=== PATIENT | male | born 1985 | race Hispanic/Latino ===

== ENCOUNTER 2018-09-24 19:51 | Emergency (ER) | payer SELFPAY ==
--- NOTE | 2018-09-24 21:16 | EDPHYS ---
Physician Documentation [facility] Name: Cecilio Montilla Age: 33 yrs Sex: Male : 1985 Arrival Date: 09/24/2018 Time: 19:53 Bed 28 Private MD: ED Physician Yao Roberts HPI: 09/24 21:16 This 33 yrs old Male presents to ER via Ambulatory with complaints of Stung by tw4 Yellow Jacket. 21:16 The patient was bitten on the dorsum of right hand, by a wasp. Onset: The tw4 symptoms/episode began/occurred today. Animal information: Patient/Caregiver unable to provide information related to the animal. Secondary to the bite the patient reports pain. Associated signs and symptoms: The patient has no apparent associated signs or symptoms. The patient has not experienced similar symptoms in the past. Historical: - Allergies: 19:57 No Known Allergies; ed1 - Home Meds: 19:57 None [Active]; ed1 - PMHx: 19:57 None; ed1 - PSHx: 19:57 None; ed1 - Immunization history:: Adult Immunizations up to date. - Social history:: Smoking status: Patient uses tobacco products, smokes one-half pack cigarettes per day. - Ebola Screening: : Patient negative for fever greater than or equal to 101.5 degrees Fahrenheit, and additional compatible Ebola Virus Disease symptoms Patient denies exposure to infectious person Patient denies travel to an Ebola-affected area in the 21 days before illness onset No symptoms or risks identified at this time. ROS: 21:16 Constitutional: Negative for fever, chills, and weight loss, Eyes: Negative for injury, tw4 pain, redness, and discharge, Cardiovascular: Negative for chest pain, palpitations, and edema, Respiratory: Negative for shortness of breath, cough, wheezing, and pleuritic chest pain, Abdomen/GI: Negative for abdominal pain, nausea, vomiting, diarrhea, and constipation, Back: Negative for injury and pain. 21:16 MS/extremity: Positive for swelling, tenderness. Exam: 21:16 Constitutional: This is a well developed, well nourished patient who is awake, alert, tw4 and in no acute distress. Head/Face: Normocephalic, atraumatic. Chest/axilla: Normal chest wall appearance and motion. Nontender with no deformity. No lesions are appreciated. Cardiovascular: Regular rate and rhythm with a normal S1 and S2. No gallops, murmurs, or rubs. Normal PMI, no JVD. No pulse deficits. Respiratory: Lungs have equal breath sounds bilaterally, clear to auscultation and percussion. No rales, rhonchi or wheezes noted. No increased work of breathing, no retractions or nasal flaring. Abdomen/GI: Soft, non-tender, with normal bowel sounds. No distension or tympany. No guarding or rebound. No evidence of tenderness throughout. Back: No spinal tenderness. No costovertebral tenderness. Full range of motion. 21:16 Musculoskeletal/extremity: Extremities: noted in the right hand: bite, swelling, There is no evidence of decreased ROM, deformity, ecchymosis, erythema, laceration, pain. Vital Signs: 19:57 BP 119 / 74; Pulse 98; Resp 18; Temp 98.7(TE); Pulse Ox 100% on R/A; Weight 56.7 kg; ed1 Height 5 ft. 7 in. (170.18 cm); Pain 0/10; 21:43 BP 116 / 81; Pulse 91; Resp 18; Pulse Ox 99% ; rv 19:57 Body Mass Index 19.58 (56.70 kg, 170.18 cm) ed1 MDM: 20:04 Patient medically screened. tw4 21:16 Differential diagnosis: cellulitis. Differential diagnosis: LOCALIZED ALLERGIC tw4 REACTION. Data reviewed: vital signs, nurses notes. Data interpreted: Pulse oximetry: Interpretation: normal. Counseling: I had a detailed discussion with the patient and/or guardian regarding: the historical points, exam findings, and any diagnostic results supporting the discharge/admit diagnosis. Special discussion: I discussed with the patient/guardian in detail that at this point there is no indication for admission to the hospital. It is understood, however, that if the symptoms persist or worsen the patient needs to return immediately for re-evaluation. Administered Medications: 20:27 Drug: SOLU-Medrol 125 mg Route: IM; Site: right deltoid; rv 21:36 Follow up: Response: Medication administered at discharge. rv Disposition: 09/24/18 21:15 Discharged to Home. Impression: Insect bite (nonvenomous) of right hand. - Condition is Stable. - Discharge Instructions: Insect Bite. - Prescriptions for Medrol (Doe) 4 mg Oral Tablets, Dose Pack - take 1 tablet by ORAL route as directed - follow package instructions; 1 packet. - Medication Reconciliation Form, Thank You Letter, Antibiotic Education, Prescription Opioid Use form. - Follow up: Private Physician; When: Upon discharge from the Emergency Department; Reason: If symptoms return, Recheck today's complaints, Continuance of care. - Problem is new. - Symptoms have improved. Signatures: Alysia John RN RN ed1 Yao Roberts MD MD tw4 Traiq Garcia RN RN rv Corrections: (The following items were deleted from the chart) 21:46 21:15 09/24/2018 21:15 Discharged to Home. Impression: Insect bite (nonvenomous) of rv right hand. Condition is Stable. Forms are Medication Reconciliation Form, Thank You Letter, Antibiotic Education, Prescription Opioid Use. Follow up: Private Physician; When: Upon discharge from the Emergency Department; Reason: If symptoms return, Recheck today's complaints, Continuance of care. Problem is new. Symptoms have improved. tw4
--- NOTE | 2018-09-24 21:16 | ER ---
Nurse's Notes [facility] Name: Cecilio Montilla Age: 33 yrs Sex: Male : 1985 Arrival Date: 09/24/2018 Time: 19:53 Bed 28 Private MD: Diagnosis: Insect bite (nonvenomous) of right hand Presentation: 09/24 19:56 Presenting complaint: Patient states: I got stung by a yellow jacket yesterday and my ed1 family wanted me to get checked out. Transition of care: patient was not received from another setting of care. Onset of symptoms was September 22, 2018. Risk Assessment: Do you want to hurt yourself or someone else? Patient reports no desire to harm self or others. Initial Sepsis Screen: Does the patient meet any 2 criteria? No. Patient's initial sepsis screen is negative. Does the patient have a suspected source of infection? No. Patient's initial sepsis screen is negative. Care prior to arrival: Medication(s) given: Motrin, Benadryl. 19:56 Method Of Arrival: Ambulatory ed1 19:56 Acuity: ZEHRA 5 ed1 Triage Assessment: 19:57 General: Appears in no apparent distress. Behavior is calm, cooperative. Pain: Denies ed1 pain. Musculoskeletal: Swelling present in right hand. Historical: - Allergies: 19:57 No Known Allergies; ed1 - Home Meds: 19:57 None [Active]; ed1 - PMHx: 19:57 None; ed1 - PSHx: 19:57 None; ed1 - Immunization history:: Adult Immunizations up to date. - Social history:: Smoking status: Patient uses tobacco products, smokes one-half pack cigarettes per day. - Ebola Screening: : Patient negative for fever greater than or equal to 101.5 degrees Fahrenheit, and additional compatible Ebola Virus Disease symptoms Patient denies exposure to infectious person Patient denies travel to an Ebola-affected area in the 21 days before illness onset No symptoms or risks identified at this time. Screenin:20 Abuse screen: Denies threats or abuse. Denies injuries from another. Nutritional rv screening: No deficits noted. Tuberculosis screening: No symptoms or risk factors identified. Fall Risk None identified. Assessment: 20:19 General: Appears in no apparent distress. comfortable, Behavior is calm, cooperative. rv Pain: Complains of pain in right hand. Neuro: Level of Consciousness is awake, alert, obeys commands, Oriented to person, place, time, situation. Cardiovascular: Capillary refill < 3 seconds. Respiratory: Airway is patent Respiratory effort is even, unlabored, Breath sounds are clear bilaterally. GI: No signs and/or symptoms were reported involving the gastrointestinal system. : No signs and/or symptoms were reported regarding the genitourinary system. EENT: No signs and/or symptoms were reported regarding the EENT system. Derm: Skin is intact. Musculoskeletal: Swelling present in right hand. Vital Signs: 19:57 BP 119 / 74; Pulse 98; Resp 18; Temp 98.7(TE); Pulse Ox 100% on R/A; Weight 56.7 kg; ed1 Height 5 ft. 7 in. (170.18 cm); Pain 0/10; 21:43 BP 116 / 81; Pulse 91; Resp 18; Pulse Ox 99% ; rv 19:57 Body Mass Index 19.58 (56.70 kg, 170.18 cm) ed1 ED Course: 19:53 Patient arrived in ED. am2 19:57 Triage completed. ed1 19:59 Tariq Garcia, LAISHA is Primary Nurse. rv 20:04 Yao Roberts MD is Attending Physician. tw4 20:21 Patient has correct armband on for positive identification. Bed in low position. Call rv light in reach. Side rails up X 1. Pulse ox on. NIBP on. 20:21 Arm band placed on left wrist. Patient placed in an exam room, on a stretcher, on pulse rv oximetry, Patient notified of wait time. 21:43 No provider procedures requiring assistance completed. Patient did not have IV access rv during this emergency room visit. Administered Medications: 20:27 Drug: SOLU-Medrol 125 mg Route: IM; Site: right deltoid; rv 21:36 Follow up: Response: Medication administered at discharge. rv Outcome: 21:15 Discharge ordered by . tw4 21:46 Discharged to home ambulatory. rv 21:46 Condition: good 21:46 Discharge instructions given to patient, Instructed on discharge instructions, follow up and referral plans. medication usage, Demonstrated understanding of instructions, follow-up care, medications, Prescriptions given X 1. 21:46 Patient left the ED. rv Signatures: John, Alysia, RN RN ed1 Ursula Pruitt am2 Yao Roberts MD MD tw4 Tariq Garcia RN RN rv
[2018-09-24] MEDS ORDERED: METHYLPREDNISOLONE 125 MG INJ ONE (21:37)
== END 2018-09-24 21:46 | disposition home or self-care (01) ==
LOC: ER 19:51
DX: S60.561A Insect bite (nonvenomous) of right hand, initial encounter (principal); F17.210 Nicotine dependence, cigarettes, uncomplicated
CPT/HCPCS: 96372; 99283; J2930

== ENCOUNTER 2021-05-05 16:39 | Inpatient (IN) | payer SELFPAY ==
--- NOTE | 2021-05-05 17:35 | RAD REPORT ---
EXAM DESCRIPTION: US - Abdomen Exam Limited - 05/05/2021 5:20 pm CLINICAL HISTORY: ABD PAIN COMPARISON: ABDOMEN W DECUBITUS dated 08/24/1999 FINDINGS: Contracted gallbladder. No stones identified. No pericholecystic edema. Sonographic Lieberman sign is negative. No intra or extrahepatic biliary ductal dilatation. IMPRESSION: Negative for cholelithiasis or acute cholecystitis. Contracted gallbladder.
[2021-05-05 17:49] LABS: Absolute Lymphocytes (CBC) 1.9 K/uL (0.7-4.9); Basophils % 0.6 % (0-1.3); Hematocrit 42.1 % (39.6-49.0); Lymphocytes % 22.5 % (15.3-44.8); MPV 8.1 fL (7.6-11.3); RBC Red Blood Cell Count 4.63 M/uL (4.33-5.43)
[2021-05-05 18:20] LABS: ALT/SGPT 34 U/L (12-78); AST/SGOT 14 U/L (15-37); Albumin 4.2 g/dL (3.4-5.0); Alkaline Phosphatase 100 U/L (45-117); BUN Blood Urea Nitrogen 11 mg/dL (7-18); Bicarbonate 26 mmol/L (21-32); Bilirubin Direct 0.1 mg/dL (0-0.2); Bilirubin Total 0.3 mg/dL (0.2-1.0); Glucose Level 103 mg/dL (74-106); Lipase 9479 U/L (73-393); Protein, Total 8.5 g/dL (6.4-8.2); Sodium Level 139 mmol/L (136-145)
--- NOTE | 2021-05-05 18:53 | RAD REPORT ---
EXAM DESCRIPTION: CTAbdomen Pelvis W Contrast - 05/05/2021 6:33 pm CLINICAL HISTORY: ABD PAIN COMPARISON: <Comparisons> TECHNIQUE: CT of the abdomen and pelvis was performed. All CT scans are performed using dose optimization technique as appropriate and may include automated exposure control or mA/KV adjustment according to patient size. FINDINGS: Lower chest: No acute abnormality. Liver: No acute abnormality or suspicious lesions. Biliary: No biliary ductal dilatation. Stomach: No significant focal abnormality. Duodenum: No significant focal abnormality. Pancreas: No significant abnormality. Spleen: No significant abnormality. Adrenal: No suspicious lesions. Kidney/ureter: No hydronephrosis. No renal calculi. Retroperitoneum: No retroperitoneal adenopathy. Vascular: No aneurysm. Bowel: No significant focal abnormality. Normal appendix. Peritoneum: No ascites or free air. Bladder: Grossly unremarkable. Reproductive: No adnexal masses. Bones: No acute fracture. Other: n/a IMPRESSION: No acute intra-abdominal or pelvic finding. Normal appendix.
--- NOTE | 2021-05-05 18:55 | EDPHYS ---
Physician Documentation [facility] Name: Cecilio Montilla Age: 35 yrs Sex: Male : 1985 Arrival Date: 05/05/2021 Time: 16:42 Bed 6 Private MD: ED Physician Ronnell Enriquez HPI: 05/06 08:04 This 35 yrs old Male presents to ER via Ambulatory with complaints of kdr Epigastric Pain. 08:04 The patient presents with abdominal pain in the epigastric area, in the right upper kdr quadrant. Onset: The symptoms/episode began/occurred gradually, 3 week(s) ago. The symptoms do not radiate. Associated signs and symptoms: Pertinent positives: nausea, Pertinent negatives: chest pain, constipation, diarrhea, dysuria, fever, headache, hematuria, palpitations, shortness of breath, testicular pain. The symptoms are described as achy, intermittent, vague, waxing/waning. Modifying factors: The symptoms are alleviated by nothing, the symptoms are aggravated by food. Severity of pain: At its worst the pain was mild moderate just prior to arrival. The patient has experienced similar episodes in the past, a few times. The patient has not recently seen a physician. Patient has had intermittent right upper gastric pain for the past 3 weeks. He denies vomiting or diarrhea but has had some nausea intermittently. Sometimes the pain is worse after eating. Last bowel movement was earlier today and was normal. He does occasionally drink but otherwise has no other history that may be precipitating this discomfort. Historical: - Allergies: 05/05 16:51 No Known Allergies; vg1 - Home Meds: 16:51 None [Active]; vg1 - PMHx: 16:51 None; vg1 - PSHx: 16:51 None; vg1 - Immunization history:: Client reports receiving the 2nd dose of the Covid vaccine. - Social history:: Smoking status: Reported history of juuling and/or vaping. ROS: 05/06 08:04 Constitutional: Negative for fever, chills, and weight loss, Eyes: Negative for injury, kdr pain, redness, and discharge, ENT: Negative for injury, pain, and discharge, Neck: Negative for injury, pain, and swelling, Cardiovascular: Negative for chest pain, palpitations, and edema, Respiratory: Negative for shortness of breath, cough, wheezing, and pleuritic chest pain, Back: Negative for injury and pain, : Negative for injury, bleeding, discharge, and swelling, MS/Extremity: Negative for injury and deformity, Skin: Negative for injury, rash, and discoloration, Neuro: Negative for headache, weakness, numbness, tingling, and seizure activity. Psych: Negative for depression, anxiety, suicide ideation, homicidal ideation, and hallucinations, Allergy/Immunology: Negative for hives, rash, and allergies, Endocrine: Negative for neck swelling, polydipsia, polyuria, polyphagia, and marked weight changes, Hematologic/Lymphatic: Negative for swollen nodes, abnormal bleeding, and unusual bruising. Abdomen/GI: Positive for abdominal pain, nausea, Negative for vomiting, diarrhea, constipation, abdominal cramps, abdominal distension, anorexia, black/tarry stool, rectal pain, rectal bleeding. Exam: 08:04 Constitutional: This is a well developed, well nourished patient who is awake, alert, kdr and in no acute distress. Head/Face: Normocephalic, atraumatic. Eyes: Pupils equal round and reactive to light, extra-ocular motions intact. Lids and lashes normal. Conjunctiva and sclera are non-icteric and not injected. Cornea within normal limits. Periorbital areas with no swelling, redness, or edema. Neck: Trachea midline, no thyromegaly or masses palpated, and no cervical lymphadenopathy. Supple, full range of motion without nuchal rigidity, or vertebral point tenderness. No Meningismus. Chest/axilla: Normal chest wall appearance and motion. Nontender with no deformity. No lesions are appreciated. Cardiovascular: Regular rate and rhythm with a normal S1 and S2. No gallops, murmurs, or rubs. Normal PMI, no JVD. No pulse deficits. Respiratory: Lungs have equal breath sounds bilaterally, clear to auscultation and percussion. No rales, rhonchi or wheezes noted. No increased work of breathing, no retractions or nasal flaring. Back: No spinal tenderness. No costovertebral tenderness. Full range of motion. Skin: Warm, dry with normal turgor. Normal color with no rashes, no lesions, and no evidence of cellulitis. MS/ Extremity: Pulses equal, no cyanosis. Neurovascular intact. Full, normal range of motion. Neuro: Awake and alert, GCS 15, oriented to person, place, time, and situation. Cranial nerves II-XII grossly intact. Motor strength 5/5 in all extremities. Sensory grossly intact. Cerebellar exam normal. Normal gait. Psych: Awake, alert, with orientation to person, place and time. Behavior, mood, and affect are within normal limits. 08:04 Abdomen/GI: Inspection: abdomen appears normal, Bowel sounds: normal, Palpation: soft, nontender, Indicators: McBurney's point is not tender, Lieberman's sign is negative, Rovsing's sign is negative, Obturator sign is negative, Psoas sign is negative. Vital Signs: 05/05 16:49 BP 141 / 92; Pulse 89; Resp 16; Temp 97.6; Pulse Ox 100% ; Weight 61.23 kg; Height 5 vg1 ft. 8 in. (172.72 cm); Pain 5/10; 19:59 BP 123 / 82; Pulse 73; Resp 16 S; Pulse Ox 99% on R/A; as6 21:21 BP 117 / 92; Pulse 73; Resp 18 S; Pulse Ox 100% on R/A; as6 16:49 Body Mass Index 20.53 (61.23 kg, 172.72 cm) vg1 MDM: 18:54 Patient medically screened. kdr 05/06 08:04 Data reviewed: vital signs, nurses notes, lab test result(s), radiologic studies. kdr Counseling: I had a detailed discussion with the patient and/or guardian regarding: the historical points, exam findings, and any diagnostic results supporting the discharge/admit diagnosis, lab results, radiology results, the need for further work-up and treatment in the hospital. 05/05 17:05 Order name: Basic Metabolic Panel; Complete Time: 18:47 kb 05/05 17:05 Order name: CBC with Diff; Complete Time: 18:47 kb 05/05 17:05 Order name: Hepatic Function; Complete Time: 18:47 kb 05/05 17:05 Order name: Lipase; Complete Time: 18:47 kb 05/05 18:51 Order name: ETOH Level; Complete Time: 08:07 kdr 05/05 19:25 Order name: COVID-19 SARS RT PCR (Document "Date of Onset" if Symptomatic); Complete cs9 Time: 08:07 05/05 17:05 Order name: IV Saline Lock; Complete Time: 17:37 kb 05/05 17:05 Order name: Labs collected and sent; Complete Time: 17:37 kb 05/05 17:05 Order name: US Abdomen Limited; Complete Time: 17:56 kb 05/05 18:15 Order name: CT Abd/Pelvis - IV Contrast Only; Complete Time: 08:07 kdr 05/05 18:52 Order name: Misc. Order; Complete Time: 19:59 kdr Administered Medications: 05/05 19:58 Drug: NS 0.9% 1000 ml Route: IV; Rate: 1 bolus; Site: left wrist; as6 21:22 Follow up: Response: No adverse reaction; IV Status: Completed infusion; IV Intake: as6 1000ml 19:58 Drug: NS 0.9% 1000 ml Route: IV; Rate: 225 ml/hr; Site: left wrist; as6 Disposition Summary: 05/05/21 18:54 Hospitalization Ordered Hospitalization Status: Inpatient Admission kdr Provider: Pascual Rausch kdr Location: Telemetry/MedSurg (Inpatient) kdr Condition: Fair kdr Problem: new kdr Symptoms: have improved kdr Bed/Room Type: Standard kdr Room Assignment: 207(05/05/21 21:10) mw Diagnosis - Idiopathic acute pancreatitis without necrosis or infection kdr Forms: - Medication Reconciliation Form kdr - SBAR form kdr Signatures: Dispatcher [employer] Ricarda Suazo, ROBC FINISHING TUNNEL OPERATOR-Ckb Christine Bernabe RN RN mw Rittger, Kevin, MD MD kdr Garcia, Victoria, RN RN vg1 Nicola Juan RN RN as6 Corrections: (The following items were deleted from the chart) 21:10 18:54 kdr mw
--- NOTE | 2021-05-05 18:55 | ER ---
Nurse's Notes [facility] Name: Cecilio Montilla Age: 35 yrs Sex: Male : 1985 Arrival Date: 05/05/2021 Time: 16:42 Bed 6 Private MD: Diagnosis: Idiopathic acute pancreatitis without necrosis or infection Presentation: 05/05 16:49 Chief complaint: Patient states: RUQ and epigastric pain that comes and goes x3 weeks; vg1 Denies NVD. States after eating the pain got worse for previous times. Last BM was today. Coronavirus screen: Vaccine status: Patient reports receiving the 2nd dose of the covid vaccine. Client denies travel out of the [place] in the last 14 days. Ebola Screen: Patient negative for fever greater than or equal to 101.5 degrees Fahrenheit, and additional compatible Ebola Virus Disease symptoms. Initial Sepsis Screen: Does the patient meet any 2 criteria? No. Patient's initial sepsis screen is negative. Does the patient have a suspected source of infection? No. Patient's initial sepsis screen is negative. Risk Assessment: Do you want to hurt yourself or someone else? Patient reports no desire to harm self or others. Onset of symptoms was April 14, 2021. 16:49 Method Of Arrival: Ambulatory vg1 16:49 Acuity: ZEHRA 3 vg1 Triage Assessment: 16:51 General: Appears in no apparent distress. comfortable, Behavior is calm, cooperative. vg1 Pain: Complains of pain in epigastric area and RUQ Pain currently is 5 out of 10 on a pain scale. Pain began x 3 weeks Is intermittent. GI: Abdomen is flat, non-distended, Last BM was May 05, 2021. Historical: - Allergies: 16:51 No Known Allergies; vg1 - Home Meds: 16:51 None [Active]; vg1 - PMHx: 16:51 None; vg1 - PSHx: 16:51 None; vg1 - Immunization history:: Client reports receiving the 2nd dose of the Covid vaccine. - Social history:: Smoking status: Reported history of juuling and/or vaping. Screenin:00 Abuse screen: Denies threats or abuse. Denies injuries from another. Nutritional bp screening: No deficits noted. Tuberculosis screening: No symptoms or risk factors identified. Fall Risk None identified. Assessment: 17:00 General: SEE TRIAGE NOTE. bp 18:00 Reassessment: No changes from previously documented assessment. Patient and/or family bp updated on plan of care and expected duration. Pain level reassessed. GI: Abdomen is non-distended. 19:58 Reassessment: Patient and/or family updated on plan of care and expected duration. Pain as6 level reassessed. Patient is alert, oriented x 3, equal unlabored respirations, skin warm/dry/pink. Vital Signs: 16:49 BP 141 / 92; Pulse 89; Resp 16; Temp 97.6; Pulse Ox 100% ; Weight 61.23 kg; Height 5 vg1 ft. 8 in. (172.72 cm); Pain 5/10; 19:59 BP 123 / 82; Pulse 73; Resp 16 S; Pulse Ox 99% on R/A; as6 21:21 BP 117 / 92; Pulse 73; Resp 18 S; Pulse Ox 100% on R/A; as6 16:49 Body Mass Index 20.53 (61.23 kg, 172.72 cm) vg1 ED Course: 16:42 Patient arrived in ED. as 16:51 Triage completed. vg1 16:51 Arm band placed on. vg1 17:00 Patient has correct armband on for positive identification. Bed in low position. Call bp light in reach. Side rails up X2. Adult w/ patient. 17:12 Ronnell Enriquez MD is Attending Physician. kdr 17:12 Simon Boyd, RN is Primary Nurse. bp 17:20 US Abdomen Limited In Process Unspecified. EDMS 17:37 Inserted saline lock: 20 gauge in right forearm, using aseptic technique. mb7 18:33 CT Abd/Pelvis - IV Contrast Only In Process Unspecified. EDMS 18:53 Pascual Rausch is Hospitalizing Provider. kdr 19:58 COVID-19 SARS RT PCR (Document "Date of Onset" if Symptomatic) Sent. as6 21:59 No provider procedures requiring assistance completed. Patient admitted, IV remains in as6 place. Administered Medications: 19:58 Drug: NS 0.9% 1000 ml Route: IV; Rate: 1 bolus; Site: left wrist; as6 21:22 Follow up: Response: No adverse reaction; IV Status: Completed infusion; IV Intake: as6 1000ml 19:58 Drug: NS 0.9% 1000 ml Route: IV; Rate: 225 ml/hr; Site: left wrist; as6 Intake: 21:22 IV: 1000ml; Total: 1000ml. as6 Outcome: 18:54 Decision to Hospitalize by Provider. kdr 21:59 Admitted to Med/surg accompanied by tech, with chart. as6 21:59 Condition: stable 21:59 Instructed on the need for admit. 21:59 Patient left the ED. as6 Signatures: Dispatcher [employer] EDMS Ronnell Enriquez MD MD kdr Martinez, Amelia as Simon Boyd, RN RN Torie Luna RN RN vg1 Nicola Juan RN RN as6 Deisi Adhikari mb7 Corrections: (The following items were deleted from the chart) 16:53 16:49 Chief complaint: Patient states: epigastric pain that comes and goes x3 weeks; vg1 Denies NVD. States after eating the pain got worse for previous times. Last BM was today. vg1 16:53 16:51 Pain: Complains of pain in epigastric area Pain currently is 5 out of 10 on a vg1 pain scale. Pain began x 3 weeks Is intermittent, vg1
[2021-05-05] MEDS ORDERED: NA CHLORIDE 0.9% 2,000 ML ONE (19:52)
--- NOTE | 2021-05-05 20:36 | P.HP ---
Certification for Inpatient Patient admitted to: Inpatient With expected LOS: <2 Midnights Patient will require the following post-hospital care: None Practitioner: I am a practitioner with admitting privileges, knowledge of patient current condition, hospital course, and medical plan of care. Services: Services provided to patient in accordance with Admission requirements found in Title 42 Section 412.3 of the Code of Federal Regulations Patient History Date of Service: 05/05/21 Reason for admission: pancreatitis History of Present Illness: Mr. Montilla is a 35 yo M who presents with 7/10 sharp epigastric abdominal pain. Starting a few weeks ago, the pain has been waking him up in the middle of the night but usually it is intermittent and mild. Last night, he woke up with severe pain that continued throughout the day. Pain worse with cough, burping, and walking. Denies nausea and vomiting and anorexia. Pain is usually not worse after eating except for today. He uses a vape pen. He drinks 8-12 beers ~5x month. He says last night that he had a couple of drinks and shots with some friends. Lipase 9479. CTAP IMPRESSION: No acute intra-abdominal or pelvic finding. Normal appendix. ABDOMINAL US IMPRESSION: Negative for cholelithiasis or acute cholecystitis. Contracted gallbladder. Allergies No Known Allergies Allergy (Unverified 02/26/16 22:00) - Past Medical/Surgical History Diabetic: No Past Medical History: Patient denies medical history Past Surgical History: Patient denies surgical history - Family History Family History: Reviewed- Non-Contributory - Social History Smoking Status: Current every day smoker Alcohol use: Yes CD- Drugs: No Caffeine use: No Place of Residence: Home Review of Systems 10-point ROS is otherwise unremarkable General: Unremarkable Eyes: Unremarkable ENT: Unremarkable Respiratory: Unremarkable Cardiovascular: Unremarkable Gastrointestinal: Abdominal Pain Genitourinary: Unremarkable Musculoskeletal: Unremarkable Integumentary: Unremarkable Neurological: Unremarkable Lymphatics: Unremarkable Physical Examination - Physical Exam General: Alert, In no apparent distress HEENT: Atraumatic, PERRLA, Mucous membr. moist/pink, EOMI, Sclerae nonicteric Neck: Supple, 2+ carotid pulse no bruit, No LAD, Without JVD or thyroid abnormality Respiratory: Clear to auscultation bilaterally, Normal air movement Cardiovascular: Regular rate/rhythm, Normal S1 S2 Gastrointestinal: Normal bowel sounds, Tenderness Musculoskeletal: No tenderness Integumentary: No rashes Neurological: Normal gait, Normal speech, Normal strength at 5/5 x4 extr, Normal tone, Normal affect Lymphatics: No axilla or inguinal lymphadenopathy - Studies Laboratory Data (last 24 hrs) 05/05/21 17:34: WBC 8.30, Hgb 14.2, Hct 42.1, Plt Count 298 05/05/21 17:34: Sodium 139, Potassium 4.0, BUN 11, Creatinine 0.92, Glucose 103, Total Bilirubin 0.3, AST 14 L, ALT 34, Alkaline Phosphatase 100, Lipase 9479 H Assessment and Plan - Problems (Diagnosis) (1) Pancreatitis Current Visit: Yes Status: Acute Qualifiers: Chronicity: acute Pancreatitis type: alcohol induced Acute pancreatitis complication: unspecified Qualified Code(s): K85.20 - Alcohol induced acute pancreatitis without necrosis or infection - Plan NPO overnight, advance diet in the AM continue IV fluids daily amylase, lipase lipid profile pending pain management and antiemetics as needed DVT ppx Discharge Plan: Home Plan to discharge in: 48 Hours - Advance Directives Does patient have a Living Will: No Does patient have a Durable POA for Healthcare: No - Code Status/Comfort Care Code Status Assessed: Yes (full code ) Critical Care: No Time Spent Managing Pts Care (In Minutes): 70
[2021-05-05] MEDS ORDERED: HYDRALAZINE HCL 20 MG/ML VIAL IV PRN (21:40)
[2021-05-05] MEDS ORDERED: ACETAMINOPHEN 500 MG TAB PO PRN (21:40)
[2021-05-05] MEDS: NA CHLORIDE 0.9% 1,000 ML IV SCH (22:10)
[2021-05-05 22:46] VITALS: BMI 20.5
[2021-05-06] MEDS: MORPHINE 2 MG/ML SYR IV PRN ×6 (00:45→22:51)
[2021-05-06] MEDS: NA CHLORIDE 0.9% 1,000 ML IV SCH ×3 (04:42→20:53)
[2021-05-06 05:46] LABS: Absolute Lymphocytes (CBC) 2.4 K/uL (0.7-4.9); Basophils % 0.4 % (0-1.3); Hematocrit 38.9 % (39.6-49.0); Lymphocytes % 26.2 % (15.3-44.8); MPV 8.1 fL (7.6-11.3); RBC Red Blood Cell Count 4.25 M/uL (4.33-5.43)
[2021-05-06 06:14] LABS: ALT/SGPT 26 U/L (12-78); AST/SGOT 14 U/L (15-37); Albumin 3.3 g/dL (3.4-5.0); Alkaline Phosphatase 79 U/L (45-117); BUN Blood Urea Nitrogen 7 mg/dL (7-18); Bicarbonate 24 mmol/L (21-32); Bilirubin Total 0.6 mg/dL (0.2-1.0); C-Reactive Protein < 2.90 mg/L (<3.00); Glucose Level 99 mg/dL (74-106); Lipase 15310 U/L (73-393); Magnesium 2.1 mg/dL (1.8-2.4); Phosphorus 3.5 mg/dL (2.5-4.9); Potassium 3.6 mmol/L (3.5-5.1); Protein, Total 6.9 g/dL (6.4-8.2); Sodium Level 139 mmol/L (136-145)
[2021-05-06 06:18] LABS: Amylase 1057 U/L (25-115)
[2021-05-06] MEDS ORDERED: INFLUENZA VACCINE (for 6+ mo) 0.5 ML DOSE IMVAC ONE (08:00)
[2021-05-06] MEDS: ONDANSETRON 4 MG/2 ML VIAL IV PRN ×2 (08:32→22:51)
[2021-05-06] MEDS ORDERED: POTASSIUM CL SA 10 MEQ TAB PO ONE (09:00)
[2021-05-06] MEDS: ENOXAPARIN 40 MG/0.4 ML SQ SCH (09:38)
--- NOTE | 2021-05-06 15:09 | P.PN ---
Subjective Date of Service: 05/06/21 Chief Complaint: pancreatitis Patient complaining of intermittent abdominal pain. He is tolerating clear liquid diet. Physical Examination - Vital Signs Temperature: 99.0 F Blood Pressure: 112/68 Pulse: 80 Respirations: 16 Pulse Ox (%): 99 - Physical Exam General: Alert, In no apparent distress, Oriented x3 HEENT: Mucous membr. moist/pink Neck: JVD not distended Respiratory: Clear to auscultation bilaterally, Normal air movement Cardiovascular: No edema, Regular rate/rhythm, Normal S1 S2 Gastrointestinal: Normal bowel sounds, Soft and benign, Non-distended, Tenderness (Mild epigastric tenderness) Musculoskeletal: No swelling Integumentary: No rashes Neurological: Normal speech, Normal strength at 5/5 x4 extr, Cranial nerves 3-12 intact - Studies Laboratory Data (last 24 hrs) 05/05/21 17:34: WBC 8.30, Hgb 14.2, Hct 42.1, Plt Count 298 05/05/21 17:34: Sodium 139, Potassium 4.0, BUN 11, Creatinine 0.92, Glucose 103, Total Bilirubin 0.3, AST 14 L, ALT 34, Alkaline Phosphatase 100, Lipase 9479 H Assessment And Plan - Current Problems (Diagnosis) (1) Acute pancreatitis Current Visit: Yes Status: Acute (2) Alcohol use Current Visit: Yes Status: Acute - Plan Continue supportive measures with IV fluids. IV opioids as needed for pain. Acute pancreatitis likely secondary to alcohol ingestion. LFTs are normal. Monitor lipase and amylase level. Continue clear liquid diet.
[2021-05-07] MEDS: NA CHLORIDE 0.9% 1,000 ML IV SCH ×3 (04:56→20:33)
[2021-05-07] MEDS: ONDANSETRON 4 MG/2 ML VIAL IV PRN ×2 (04:57→10:51)
[2021-05-07] MEDS: MORPHINE 2 MG/ML SYR IV PRN ×4 (04:57→21:57)
[2021-05-07 06:08] LABS: Basophils % 0.4 % (0-1.3); Lymphocytes % 21.6 % (15.3-44.8); RBC Red Blood Cell Count 4.32 M/uL (4.33-5.43)
[2021-05-07 06:25] LABS: Albumin 3.4 g/dL (3.4-5.0); BUN Blood Urea Nitrogen 3 mg/dL (7-18); Bicarbonate 27 mmol/L (21-32); Bilirubin Total 0.8 mg/dL (0.2-1.0); Glucose Level 104 mg/dL (74-106); Potassium 3.8 mmol/L (3.5-5.1); Sodium Level 140 mmol/L (136-145)
[2021-05-07 06:31] LABS: ALT/SGPT 24 U/L (12-78); AST/SGOT 15 U/L (15-37); Alkaline Phosphatase 80 U/L (45-117); Lipase 12744 U/L (73-393); Protein, Total 7.1 g/dL (6.4-8.2)
[2021-05-07 06:33] LABS: Amylase 715 U/L (25-115)
[2021-05-07] MEDS ORDERED: POTASSIUM 25 MEQ EFFERV TAB PO ONE (09:00)
[2021-05-07] MEDS: ENOXAPARIN 40 MG/0.4 ML SQ SCH (10:51)
--- NOTE | 2021-05-07 12:01 | P.PN ---
Subjective Date of Service: 05/07/21 Chief Complaint: pancreatitis Patient still complaining of intermittent pain especially with a clear liquid diet. He reports occasional nausea, no vomiting. Physical Examination - Vital Signs Temperature: 98.3 F Blood Pressure: 100/65 Pulse: 73 Respirations: 16 Pulse Ox (%): 98 - Physical Exam General: Alert, In no apparent distress, Oriented x3 HEENT: Mucous membr. moist/pink Neck: JVD not distended Respiratory: Clear to auscultation bilaterally, Normal air movement Cardiovascular: No edema, Regular rate/rhythm, Normal S1 S2 Gastrointestinal: Normal bowel sounds, Soft and benign, Non-distended, No tenderness Musculoskeletal: No swelling Integumentary: No rashes Neurological: Normal strength at 5/5 x4 extr Assessment And Plan - Current Problems (Diagnosis) (1) Acute pancreatitis Current Visit: Yes Status: Acute (2) Alcohol use Current Visit: Yes Status: Acute - Plan Lipase level is trending down still severely elevated. Continue supportive measures with IV fluids. IV opioids as needed for pain. Antiemetics as needed. Serial lipase and amylase level. Continue clear liquid diet.
[2021-05-07 13:35] VITALS: O2SAT 98
[2021-05-08] MEDS: ONDANSETRON 4 MG/2 ML VIAL IV PRN ×2 (02:49→08:43)
[2021-05-08] MEDS: MORPHINE 2 MG/ML SYR IV PRN ×2 (02:49→08:44)
[2021-05-08 05:58] LABS: Absolute Lymphocytes (CBC) 2.1 K/uL (0.7-4.9); Basophils % 0.8 % (0-1.3); Hematocrit 36.5 % (39.6-49.0); Lymphocytes % 30.2 % (15.3-44.8); MPV 7.7 fL (7.6-11.3); RBC Red Blood Cell Count 3.98 M/uL (4.33-5.43)
[2021-05-08] MEDS: NA CHLORIDE 0.9% 1,000 ML IV SCH (06:07)
[2021-05-08 06:28] LABS: ALT/SGPT 32 U/L (12-78); AST/SGOT 15 U/L (15-37); Alkaline Phosphatase 76 U/L (45-117); BUN Blood Urea Nitrogen 3 mg/dL (7-18); Bicarbonate 26 mmol/L (21-32); Bilirubin Total 0.7 mg/dL (0.2-1.0); Glucose Level 101 mg/dL (74-106); Lipase 3479 U/L (73-393); Potassium 3.7 mmol/L (3.5-5.1); Protein, Total 6.6 g/dL (6.4-8.2); Sodium Level 140 mmol/L (136-145)
[2021-05-08 06:43] LABS: Amylase 269 U/L (25-115)
[2021-05-08] MEDS: ENOXAPARIN 40 MG/0.4 ML SQ SCH (08:42)
[2021-05-08 08:58] VITALS: BP 103/58; TEMP 98.1
[2021-05-08] MEDS ORDERED: POTASSIUM 25 MEQ EFFERV TAB PO ONE (09:00)
--- NOTE | 2021-05-08 10:25 | P.DS ---
Admission Date: 05/05/21 Discharge Date: 05/08/21 Disposition: ROUTINE DISCHARGE Discharge Condition: FAIR Reason for Admission: pancreatitis - Problems (1) Acute pancreatitis Current Visit: Yes Status: Acute (2) Alcohol use Current Visit: Yes Status: Acute Brief History of Present Illness: Mr. Montilla is a 35 yo M who presents with 7/10 intermittent sharp epigastric abdominal pain of 2 weeks duration. He developed severe abdominal pain in the middle of the night that persisted throughout the day. Pain worse with with meals. Patient stated he had a binge of alcohol the evening before he developed severe abdominal pain. He drinks 8-12 beers ~5x month. Lipase in the ED up to 9 479. CTAP IMPRESSION: No acute intra-abdominal or pelvic finding. Normal appendix. ABDOMINAL US IMPRESSION: Negative for cholelithiasis or acute cholecystitis. Contracted gallbladder. Patient hospitalized for further management. Hospital Course: Patient admitted to medical floor continued for acute pancreatitis with supportive measures including IV fluids, IV opioid for pain and antiemetics. He tolerated liquid diet. Lipase level trended down from 15,000 to 3000. His symptoms improved. Vitals stable. Patient deemed stable for discharge. He is informed to stick to liquid diet for the next couple of days and then advance as tolerated. Vital Signs/Physical Exam: Temp Pulse Resp BP Pulse Ox 98.1 F 82 18 103/58 L 99 05/08/21 08:00 05/08/21 08:00 05/08/21 09:14 05/08/21 08:00 05/08/21 09:14 General: Alert, In no apparent distress, Oriented x3 HEENT: Mucous membr. moist/pink Neck: JVD not distended Respiratory: Clear to auscultation bilaterally, Normal air movement Cardiovascular: No edema, Regular rate/rhythm, Normal S1 S2 Gastrointestinal: Soft and benign, Non-distended, No tenderness Musculoskeletal: No swelling Integumentary: No rashes, No erythema Neurological: Normal strength at 5/5 x4 extr Laboratory Data at Discharge: WBC 6.80 K/uL (4.3-10.9) D 05/08/21 05:32 Hgb 12.4 g/dL (13.6-17.9) L 05/08/21 05:32 Hct 36.5 % (39.6-49.0) L 05/08/21 05:32 Plt Count 294 K/uL (152-406) 05/08/21 05:32 Sodium 140 mmol/L (136-145) 05/08/21 05:32 Potassium 3.7 mmol/L (3.5-5.1) 05/08/21 05:32 BUN 3 mg/dL (7-18) L 05/08/21 05:32 Creatinine 0.88 mg/dL (0.55-1.3) 05/08/21 05:32 Glucose 101 mg/dL (74-106) 05/08/21 05:32 Phosphorus 3.5 mg/dL (2.5-4.9) 05/06/21 05:09 Magnesium 2.1 mg/dL (1.8-2.4) 05/06/21 05:09 Total Bilirubin 0.7 mg/dL (0.2-1.0) 05/08/21 05:32 AST 15 U/L (15-37) 05/08/21 05:32 ALT 32 U/L (12-78) 05/08/21 05:32 Alkaline Phosphatase 76 U/L (45-117) 05/08/21 05:32 Triglycerides 105 mg/dL (<150) 05/05/21 21:54 Cholesterol 177 mg/dL (<200) 05/05/21 21:54 HDL Cholesterol 44 mg/dL (40-60) 05/05/21 21:54 Cholesterol/HDL Ratio 4.02 05/05/21 21:54 Amylase 269 U/L (25-115) H* D 05/08/21 05:32 Lipase 3479 U/L (73-393) H 05/08/21 05:32 Home Medications: Codeine/APAP [Tylenol W/Codeine #3 tab] 1 tab PO Q6HP PRN #20 tab 05/08/21 New Medications: Codeine/APAP [Tylenol W/Codeine #3 tab] 1 tab PO Q6HP PRN #20 tab PRN Reason: Pain Physician Discharge Instructions: Stick to clear liquid diet for the next 2 days and then advance to soft before solid diet as tolerated . Followup: NONE,NONE [Primary Care Provider] - Time spent managing pt's care (in minutes): 34
== END 2021-05-08 11:18 | disposition home or self-care (01) | DRG 440 ==
LOC: ER 16:39 → ERHOLD 19:31 → 2ND 21:23
PROVIDERS: ADMIT Internal Medicine; ATTEND Internal Medicine
DX: K85.20 Alcohol induced acute pancreatitis without necrosis or infection (principal); Z23 Encounter for immunization; Z20.822 Contact with and (suspected) exposure to COVID-19
CPT/HCPCS: 36415; 74177; 76705; 80048; 80053; 80061; 80076; 80320; 82150; 83690; 83735; 84100; 84439; 84443; 85025; 86140; 90471; 94760; 96360; 99285; J1650; J2270; J2405; J7030; Q2035; Q9967; U0003

== ENCOUNTER 2022-02-09 21:42 | Emergency (ER) | payer SELFPAY ==
--- OUTSIDE RECORDS SUMMARY | 2022-02-09 21:46 | XMS REPORT | Continuity of Care Document ---
:1985 Author Organization [facility] [place] [facility] t Address [address] [place] [address] Dr. [address]. 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 Moderate Moderate 1-10 ity of protein protein 00:00: [place] calorie calorie 00 Medical malnutriti malnutriti Br anch on on Acute Acute Disease Active Univers pancreatit pancreatit 1-09 it y of [place] infection infection 00 Medi judith or or Branch necrosis necrosis Allergies, Adverse Reactions, Alerts Allergy Allergy Status Severity Reaction(s) Onset Inactive Treating Comm ents Source Name Type Date Date Clinician NO KNOWN Drug Active Univers ALLERGIE Class ity of S [facility] Social History Social Habit Start Date Stop Date Quantity Comments Source Exposure to Not sure [facility] SARS-CoV-2 [facility] (event) Tobacco use and 2021-05-29 2021-05-29 Current user Univers [facility] [place] exposure 00:00:00 00:00:00 Medical Branch Sex Ass[birth year] At [birth year] [facility] 00:00:00 00:00:00 Medical Branch Smoking Status Start Date Stop Date Source Former smoker 2021-05-29 00:00:00 2021-05-29 00:00:00 [facility] Medical Branch Medications Ordered Filled Start Stop Current Ordering Indication Dosage Frequency Signature Comments Components Source Medication Medication Date Date Medication? Clinician (SIG) Name Name melatonin Yes 6mg 6 mg, Univers (MELATIN) 1-13 Oral, QHS, ity of tablet 6 mg 03:00: First dose [place] 00 on Sun Medical 06/01/21 at Branch 2100, Until Discontinu ed, Routine lactated 2021- Yes 1000mL at 100 Unive rs ringers IV 1-12 mL/hr, ity of infusion 06:45: 1,000 mL, [place] 1[place]000 [place] 00 IV Medical Infusion, Branch CONTINUOUS , Starting on Sun06/01/21 at 0045, Until Discontinu ed, Routine ketorolac Yes 30mg 30 mg, Univer s (TORADOL) 1-12 Slow IV ity of injection 06:42: Push, [place] 30 mg 07 Q6HPRN, 4 Medical doses, Branch Starting on Sun06/01/21 at 0042, Until Discontinu ed, Routine, Alternate with [place] for pain scale 4-6 LORazepam 2021- No .5mg 0.5 mg, Univ ers (ATIVAN) 11 05-31 Slow IV ity of injection 07:15: 06:27 Push, [place] 0.5 mg 00 :00 ONCE, 1 Medical dose, On Branch Sun05/31/21 at 0115, Routine morpHINE Yes 2mg 2 mg, Slow Uni vers injection 2 -11 IV Push, ity of mg 06:12: Q4HPRN, [place] 19 Starting Medical on Sun05/31/21 at 0012, Until Discontinu ed, Routine, Pain (scale 7-10) enoxaparin Yes 40mg 40 mg, Unive rs (LOVENOX) 1-10 Subcutaneo ity of injection 15:00: [place], DAILY, [place] 40 mg 00 First dose Medical on Sun05/30/21 at 0900, Until Discontinu ed, Routine lactated 2021- No 1000mL at 200 Univ ers ringers IV 05-30 01-12 mL/hr, ity of infusion 05:15: 06:43 1,000 mL, Rodolfo as 1,000 mL 00 :32 IV Medical Infusion, Branch CONTINUOUS , Starting on Sun05/29/21 at 2315, Until 06/01/21 at 0043, Routine ondansetron 2021- No 4mg 4 mg, Slow Univers (ZOFRAN 05-30- IV Push, ity of (PF)) 04:30: 03:28 ONCE, 1 [place] injection 4 00 :00 dose, On Medi judith mg [place] 05/29/21 Branch at 2230, MADELEINE FENTanyl PF 2021- No 50ug 50 mcg, Un jesus (SUBLIMAZE 05-30 Slow IV ity o f (PF)) 04:30: 03:27 Push, [place] injection 00 :00 ONCE, 1 Medical 50 mcg dose, On Branch [place] 05/29/21 at 2230, Routine NaCl 0.9% 2021- No 1000mL at 999 Uni vers (NS) IV 05-30 01-10 mL/hr, ity of infusion 04:30: 04:10 [place]venou [place] 1,000 mL 00 :28 s, Medical CONTINUOUS Branch , Starting on Sun05/29/21 at 2230, Until [place] 05/29/21 at 2210, Routine ondansetron Yes 4mg 4 mg, Slow Univers (ZOFRAN 1-10 IV Push, ity of (PF)) 04:14: Q6HPRN, [place] injection 4 24 Starting Medi judith mg on [place] Branch 05/29/21 at 2214, Until Discontinu ed, Routine, Nausea and Vomiting (N/V) morpHINE 2021- No 4mg 4 mg, Slow Un jesus injection 4 05-30-11 IV Push, ity of mg 04:14: 04:13 Q4HPRN, [place] 20 :20 Starting Medical on [place] Branch 05/29/21 at 2214, Until Sun05/30/21 at 2213, Routine, Pain (scale 7-10) iopamidol 2021- No [id number] 90mL 90 mL, U nivers (ISOVUE 05-30 Intravenou ity o f 370-500 mL) 03:43: 03:43 s, ONCE, 1 [place] injection 00 :00 dose, On Medica l 90 mL 05/29/21 Branch at 2200, Routine No known No Univers medications 05-29 ity of 22:09: [address] No known No Univers medications 05-29 ity of 22:09: [address] Vital Signs Vital Name Observation Time Observation Value Comments Source Systolic blood 2021-06-01 17:25:00 108 mm[Hg] Univer sity [facility] Diastolic blood 2021-06-01 17:25:00 75 mm[facility]Hg] [facility] Heart rate 2021-06-01 17:25:00 81 /min [facility] Body temperature 2021-06-01 17:25:00 36.44 [facility] Respiratory rate 2021-06-01 17:25:00 16 /min [facility] Oxygen saturation in 2021-06-01 17:25:00 96 /min [facility] Arterial blood by [facility] Pulse oximetry [place] Body weight 2021-05-31 11:07:00 57.97 kg [facility] BMI 2021-05-31 11:07:00 19.43 kg/m2 [facility] Body height 2021-05-30 01:54:00 172.7 cm [facility] Procedures Procedure Date / Time Performing Clinician Source Performed LIPASE 2021-06-01 10:48:00 Neli De La O [facility] BASIC METABOLIC PANEL 2021-06-01 10:48:00 Neli De La O [facility] (NA, K, CL, CO2, GLUCOSE, Medica l Branch BUN, CREATININE, CA) CBC WITH DIFF 2021-06-01 10:48:00 Neli De La O [facility] PHOSPHORUS 2021-05-31 10:47:00 Krzysztof Diallo o f [facility] LIPASE 2021-05-31 10:47:00 [facility] 2021-05-31 10:47:00 Yo[facility] COMP. METABOLIC PANEL 2021-05-31 10:47:00 Krzysztof iDallo [facility] ([id number]) Medical Branch US GALL BLADDER 2021-05-30 14:50:00 [facility] COMP. METABOLIC PANEL 2021-05-30 09:41:00 [facility] ([id number]) [facility] CBC WITHOUT DIFF 2021-05-30 09:41:00 [facility] URINE DRUG (IMMUNOASSAY) 2021-05-30 06:40:00 [facility] - COMPREHENSIVE DRUG Medical Bra nch SCREEN ETHANOL 2021-05-30 05:40:00 [facility] CT ABDOMEN PELVIS W 2021-05-30 03:47:59 Corin Hilario [facility] CONTRAST Medical Branch COVID-19 (ID NOW RAPID 2021-05-30 03:27:00 Payton Bergman [facility] TESTING) Medical Branch LAB ONLY COVID 2021-05-30 03:27:00 Payton Bergman [facility] INTERPRETATION Medical Branch LIPASE 2021-05-30 02:05:00 Corin Hilario [facility] COMP. METABOLIC PANEL 2021-05-30 02:05:00 Corin Hilario [facility] ([id number]) Medical Branch LIPID PANEL ([id number])(TOTAL 2021-05-30 02:05:00 Corin Hilario U [facility] CHOLESTEROL, [facility] Branch TRIGLYCERIDES, HDL) CBC WITH DIFF 2021-05-30 02:05:00 Corin Hilario [facility] URINALYSIS 2021-05-30 02:05:00 Corin Hilario [facility] NOTICE OF PRIVACY 2021-05-30 01:47:19 Doctor Unassigned, [facility] PRACTICES [place] [facility] CONSENT/REFUSAL FOR 2021-05-30 01:32:12 [facility]assigned, [facility] DIAGNOSIS AND TREATMENT [place] [facility] Encounters Start End Encounter Admission Attending Care Care Encounter Source Date/Time Date/Time Type Type Clinicians Facility Department ID 2021-06-02 2021-06-02 Transition DYLON Szymanski [id number] Univers 00:00:00 00:00:00 of Care Renee ORDONEZ [id number] ity ROMULO [id number] [facility] [id number] [facility] 403 Branch 2021-05-29 2021-06-01 Inpatient X [facility] [id number] Univers 20:06:00 12:20:00 [facility] ity [facility] 2021-05-29 2021-06-01 [facility] [id number] [facility] 20:06:00 12:20:00 Encounter Sd Helmsul LISAZOHRA [id number] ity of [place] [id number] [facility] [id number] [facility] 081 Branch Results Test Description Test Time Test Comments Results Result Comments Source BASIC METABOLIC PANEL (NA, K, CL, CO2, GLUCOSE, BUN, 2021-05 11:16:53 CREATININE, CA) Test Item Value Reference Range Interpretation Comme nts NA (test code = 6525157882) 137 mmol/L 135-145 K (test code = 7893590597) 3.6 mmol/L 3.5-5.0 CL (test code = 2169862578) 104 mmol/L 98-108 CO2 TOTAL (test code = 0315215241) 27 mmol/L 23-31 AGAP (test code = 7402943570) 2-16 BUN (test code = 2672446942) 4 mg/dL 7-23 L GLUCOSE (test code = 4445225164) 96 mg/dL 70-110 CREATININE (test code = 0.70 mg/dL 0.60-1.25 0270914290) CALCIUM (test code = 2171261905) 8.8 mg/dL 8.6-10.6 eGFR (test code = 3510606719) mL/min/1.73m2 ISMAEL (test code = ISMAEL) Association of Glomerular Filtration Rate (GFR) and Staging of Kidney Disease* + +-------- + ------+| GFR (mL/min/1.73 m2) ?| With Kidney Damage ?| ?Without Kidney Damage+ +-- + +| ?>90 ?| ?Stage one ?| ? Normal ?+ +------- + -------+| ?60-89 ?| ?Stage two ?| ? Decreased GFR ? + +-------- + ------+| ?30-59 ?| ?Stage three ?| ? Stage three ? + +-------- + ------+| ?15-29 ?| ?Stage four ? | ? Stage four ?+ +------- + -------+| ?<15 (or dialysis) ? ?| ?Stage five ? | ? Stage five ?+ +------- + -------+ *Each stage assumes the associated GFR level has been in effect for at least three months. ?Stages 1 to 5, with or without kidney disease, indicate chronic kidney disease. Notes: Determination of stages one and two (with eGFR >59mL/min/1.73 m2) requires estimation of kidney damage for at least three months as defined by structural or functional abnormalities of the kidney, manifested by either:Pathological abnormalities or Markers of kidney damage (including abnormalities in the composition of the blood or urine or abnormalities in imaging tests). Lab Interpretation (test code = Abnormal 85200-0) [place] [facility] 11:15:52 Test Item Value Reference Range Interpretation Comments LIPASE (test code = 2397333958) 1249 U/L 0-220 H Lab Interpretation (test code = Abnormal 76036-2) [place] [facility] [id number] 11:00:06 Test Item Value Reference Range Interpretation Comments WBC (test code = See_Comment [Automated 7790-2) message] The sy stem which generated this result transmitted reference range : 4.20 - 10.70 10*3/?L. The reference range was not used to interpret this result as normal/abnormal . RBC (test code = See_Comment L [Automated 609-8) message] The sy stem which generated this result transmitted reference range : 4.26 - 5.52 10*6/?L. The reference range was not used to interpret this result as normal/abnormal . HGB (test code = 12.4 g/dL 12.2-16.4 718-7) HCT (test code = 36.2 % 38.4-49.3 L 4544-3) MCV (test code = 90.3 fL 81.7-95.6 787-2) MCH (test code = 30.9 pg 26.1-32.7 785-6) MCHC (test code = 34.3 g/dL 31.2-35.0 786-4) RDW-SD (test code = 40.2 fL 38.5-51.6 16192-8) RDW-CV (test code = 12.1 % 12.1-15.4 788-0) PLT (test code = See_Comment [Automated 777-3) message] The sy stem which generated this result transmitted reference range : 150 - 328 10*3/ ?L. The reference r nadine was not used to interpret this result as normal/abnormal . MPV (test code = 9.7 fL 9.8-13.0 L 86844-7) NRBC/100 WBC (test See_Comment [Automat ed code = 5938480644) message] The system which generated this result transmitted reference range : 0.0 - 10.0 /100 WBCs. The refer ence range was not u sed to interpret th is result as normal/abnormal . NRBC x10^3 (test code <0.01 See_Comment [Auto mated = 0640575155) message] The s ystem which generated this result transmitted reference range : 10*3/?L. The reference range was not used to interpret this result as normal/abnormal . GRAN MAT (NEUT) % 56.3 % (test code = 770-8) IMM GRAN % (test code 0.30 % = 0562342532) LYMPH % (test code = 30.5 % 736-9) MONO % (test code = 9.4 % 5905-5) EOS % (test code = 2.6 % 713-8) BASO % (test code = 0.9 % 706-2) GRAN MAT x10^3(ANC) 3.65 10*3/uL 1.99-6.95 (test code = 3409635102) IMM GRAN x10^3 (test <0.03 0.00-0.06 code = 4452112868) LYMPH x10^3 (test code 1.98 10*3/uL 1.09-3.23 = 731-0) MONO x10^3 (test code 0.61 10*3/uL 0.36-1.02 = 742-7) EOS x10^3 (test code = 0.17 10*3/uL 0.06-0.53 711-2) BASO x10^3 (test code 0.06 10*3/uL 0.01-0.09 = 704-7) Lab Interpretation Abnormal (test code = 31360-1) [place] [facility] 12:13:02 Test Item Value Reference Range Interpretation Comments MAGNESIUM (test code = 1273728956) 1.8 mg/dL 1.7-2.4 Lab Interpretation (test code = Normal 95749-0) [place] [facility] MET[facility]OLIC PANEL (77790)2021-05-31 12:12:42 Test Item Value Reference Range Interpretation Comments NA (test code = 135 mmol/L 135-145 7375094936) K (test code = 3.3 mmol/L 3.5-5.0 L 5959103243) CL (test code = 102 mmol/L 98-108 7275865087) CO2 TOTAL (test code = 27 mmol/L 23-31 7454937179) AGAP (test code = 2-16 3842438627) BUN (test code = 4 mg/dL 7-23 L 9972782828) GLUCOSE (test code = 135 mg/dL 70-110 H 3773118226) CREATININE (test code = 0.65 mg/dL 0.60-1.25 0798415708) TOTAL BILI (test code = 0.5 mg/dL 0.1-1.5 5197345935) CALCIUM (test code = 8.7 mg/dL 8.6-10.6 1352696288) T PROTEIN (test code = 6.9 g/dL 6.3-8.2 4457870723) ALBUMIN (test code = 3.7 g/dL 3.5-5.0 6420873396) ALK PHOS (test code = 75 U/L 34-122 1090928196) ALTv (test code = 20 U/L 5-50 1742-6) AST(SGOT) (test code = 21 U/L 13-40 5310785363) eGFR (test code = mL/min/1.73m2 8354424301) ISMAEL (test code = ISMAEL) Association of Glomerular Filtration Rate (GFR) and Staging of Kidney Disease* + --+ --+ ------+| GFR (mL/min/1.73 m2) ?| With Kidney Damage ?| ?Without Kidney Damage+ --------+ --------+ +| ?>90 ?| ?Stage one ?| ? Normal ?+ ---+ ---+ -------+| ?60-89 ?| ?Stage two ?| ? Decreased GFR ? + --+ --+ ------+| ?30-59 ?| ?Stage three ?| ? Stage three ? + --+ --+ ------+| ?15-29 ?| ?Stage four ? | ? Stage four ?+ ---+ ---+ -------+| ?<15 (or dialysis) ? ?| ?Stage five ? | ? Stage five ?+ ---+ ---+ -------+ *Each stage assumes the associated GFR level has been in effect for at least three months. ?Stages 1 to 5, with or without kidney disease, indicate chronic kidney disease. Notes: Determination of stages one and two (with eGFR >59mL/min/1.73 m2) requires estimation of kidney damage for at least three months as defined by structural or functional abnormalities of the kidney, manifested by either:Pathological abnormalities or Markers of kidney damage (including abnormalities in the composition of the blood or urine or abnormalities in imaging tests). Lab Interpretation Abnormal (test code = 62070-1) [place] [facility] 12:12:42 Test Item Value Reference Range Interpretation Comments PHOSPHORUS (test code = 4052970469) 3.3 mg/dL 2.5-5.0 Lab Interpretation (test code = Normal 19416-0) [place] [facility] 12:12:42 Test Item Value Reference Range Interpretation Comments LIPASE (test code = 6453497255) 1407 U/L 0-220 H Lab Interpretation (test code = Abnormal 17343-5) [facility]. METABOLIC PANEL (21808)2021-05-30 11:05:08 Test Item Value Reference Range Interpretation Comments NA (test code = 135 mmol/L 135-145 5932428067) K (test code = 3.4 mmol/L 3.5-5.0 L 6863204387) CL (test code = 104 mmol/L 98-108 1656608617) CO2 TOTAL (test code = 25 mmol/L 23-31 6004254227) AGAP (test code = 2-16 0139466222) BUN (test code = 9 mg/dL 7-23 5398672834) GLUCOSE (test code = 107 mg/dL 70-110 5315487169) CREATININE (test code = 0.66 mg/dL 0.60-1.25 8181679096) TOTAL BILI (test code = 0.4 mg/dL 0.1-1.0 9498652132) CALCIUM (test code = 8.3 mg/dL 8.6-10.6 L 0048634556) T PROTEIN (test code = 6.9 g/dL 6.3-8.2 6694714914) ALBUMIN (test code = 3.8 g/dL 3.5-5.0 1576402525) ALK PHOS (test code = 80 U/L 34-122 6357688506) ALTv (test code = 23 U/L 5-50 1742-6) AST(SGOT) (test code = 22 U/L 13-40 1028827104) eGFR (test code = mL/min/1.73m2 5279296289) ISMAEL (test code = ISMAEL) Association of Glomerular Filtration Rate (GFR) and Staging of Kidney Disease* + --+ --+ ------+| GFR (mL/min/1.73 m2) ?| With Kidney Damage ?| ?Without Kidney Damage+ --------+ --------+ +| ?>90 ?| ?Stage one ?| ? Normal ?+ ---+ ---+ -------+| ?60-89 ?| ?Stage two ?| ? Decreased GFR ? + --+ --+ ------+| ?30-59 ?| ?Stage three ?| ? Stage three ? + --+ --+ ------+| ?15-29 ?| ?Stage four ? | ? Stage four ?+ ---+ ---+ -------+| ?<15 (or dialysis) ? ?| ?Stage five ? | ? Stage five ?+ ---+ ---+ -------+ *Each stage assumes the associated GFR level has been in effect for at least three months. ?Stages 1 to 5, with or without kidney disease, indicate chronic kidney disease. Notes: Determination of stages one and two (with eGFR >59mL/min/1.73 m2) requires estimation of kidney damage for at least three months as defined by structural or functional abnormalities of the kidney, manifested by either:Pathological abnormalities or Markers of kidney damage (including abnormalities in the composition of the blood or urine or abnormalities in imaging tests). Lab Interpretation Abnormal (test code = 89290-1) [facility] WITHOUT [id number] 10:20:48 Test Item Value Reference Range Interpretation Comments WBC (test code = 6690-2) See_Comment [A utomated message] The system [employer] generated this result transmit kizzy reference range : 4.20 - 10.70 10*3/?L. The reference range was not used to interpret this result as normal/abnormal . RBC (test code = 789-8) See_Comment L [Au tomated message] The system [employer] generated this result transmit kizzy reference range : 4.26 - 5.52 10* 6/?L. The reference r nadine was not used to interpret this result as normal/abnormal . HGB (test code = 718-7) 12.3 g/dL 12.2-16.4 HCT (test code = 4544-3) 36.5 % 38.4-49.3 L MCH (test code = 785-6) 30.6 pg 26.1-32.7 MCV (test code = 787-2) 90.8 fL 81.7-95.6 MCHC (test code = 786-4) 33.7 g/dL 31.2-35.0 PLT (test code = 777-3) See_Comment [Au tomated message] The system [employer] generated this result transmit kizzy reference range : 150 - 328 10*3/?L. The reference range was not used to interpret this result as normal/abnormal . MPV (test code = 10.1 fL 9.8-13.0 01681-8) RDW-CV (test code = 12.5 % 12.1-15.4 788-0) RDW-SD (test code = 42.3 fL 38.5-51.6 16906-7) NRBC x10^3 (test code = <0.01 See_Comment [Au tomated message] 2286238350) The system [employer] generated this result transmit kizzy reference range : 10*3/?L. The reference range was not used to interpret this result as normal/abnormal . NRBC/100 WBC (test code See_Comment [Au tomated message] = 9773417539) The system [facility] [employer] generated this result transmit kizzy reference range : 0.0 - 10.0 /100 WBC s. The reference r nadine was not used to interpret this result as normal/abnormal . IPF % (test code = 8585463934) Lab Interpretation (test Abnormal code = 93523-7) [place] [facility] 07:07:07 Test Item Value Reference Range Interpretation Comments ALCOHOL (test code = <10 mg/dL 2071113266) ISMAEL (test code = ISMAEL) <10 [place]ubl[place]aya68-227 Toxic>100 Depression of BASIC SCIENCES PROFESSOR>400 Fatalities Reported [facility] (81706)(TOTAL CHOLESTEROL, TRIGLYCERIDES, HDL)2021-05-30 03:36:04 Test Item Value Reference Range Interpretation Comments CHOL (test code = 218 mg/dL 120-200 H 4796952047) HDL (test code = 42 mg/dL >40 4069075356) HDLC RATIO (test code = See_Comment H [Au tomated message] 5660189043) The system [employer] generated this result transmit kizzy reference range : <=5.0. The refe rence range was not u sed to interpret th is result as normal/abnormal . TRIG (test code = 203 mg/dL 30-170 H 8544533704) LDL CHOL (test code = 135 mg/dL See_Comment [Auto mated message] 12038-5) The system [facility] [employer] generated this result transmit kizzy reference range : <=160. The refe rence range was not u sed to interpret th is result as normal/abnormal . VLDL (test code = 41 mg/dL 5-60 0589550915) Lab Interpretation (test Abnormal code = 49063-8) [facility], [id number] 02:55:08 Test Item Value Reference Range Interpretation Comments LIPASE (test code = 4890463777) >4000 0-220 H Lab Interpretation (test code = Abnormal 34938-3) [facility]field[facility] Metabolic [id number] 02:44:18 Test Item Value Reference Range Interpretation Comments NA (test code = 137 mmol/L 135-145 4320297564) K (test code = 4.2 mmol/L 3.5-5.0 2714902605) CL (test code = 101 mmol/L 98-108 2196065190) CO2 TOTAL (test code = 27 mmol/L 23-31 0996678303) AGAP (test code = 2-16 2764083841) BUN (test code = 14 mg/dL 7-23 6294982533) GLUCOSE (test code = 113 mg/dL 70-110 H 7385015148) CREATININE (test code = 0.93 mg/dL 0.60-1.25 6885013596) TOTAL BILI (test code = 0.5 mg/dL 0.1-1.6 3832803717) CALCIUM (test code = 9.2 mg/dL 8.6-10.6 0900090345) T PROTEIN (test code = 8.2 g/dL 6.3-8.2 5719631685) ALBUMIN (test code = 4.6 g/dL 3.5-5.0 1245755312) ALK PHOS (test code = 92 U/L 34-122 3056921550) ALTv (test code = 27 U/L 5-50 1742-6) AST(SGOT) (test code = 24 U/L 13-40 1851057612) eGFR (test code = mL/min/1.73m2 7571441038) ISMAEL (test code = ISMAEL) Association of Glomerular Filtration Rate (GFR) and Staging of Kidney Disease* + --+ --+ ------+| GFR (mL/min/1.73 m2) ?| With Kidney Damage ?| ?Without Kidney Damage+ --------+ --------+ +| ?>90 ?| ?Stage one ?| ? Normal ?+ ---+ ---+ -------+| ?60-89 ?| ?Stage two ?| ? Decreased GFR ? + --+ --+ ------+| ?30-59 ?| ?Stage three ?| ? Stage three ? + --+ --+ ------+| ?15-29 ?| ?Stage four ? | ? Stage four ?+ ---+ ---+ -------+| ?<15 (or dialysis) ? ?| ?Stage five ? | ? Stage five ?+ ---+ ---+ -------+ *Each stage assumes the associated GFR level has been in effect for at least three months. ?Stages 1 to 5, with or without kidney disease, indicate chronic kidney disease. Notes: Determination of stages one and two (with eGFR >59mL/min/1.73 m2) requires estimation of kidney damage for at least three months as defined by structural or functional abnormalities of the kidney, manifested by either:Pathological abnormalities or Markers of kidney damage (including abnormalities in the composition of the blood or urine or abnormalities in imaging tests). Lab Interpretation Abnormal (test code = 12964-0) [facility] with [id number] 02:15:00 Test Item Value Reference Range Interpretation Comments WBC (test code = See_Comment [Automated 1584-2) message] The sy stem which generated this result transmitted reference range : 4.20 - 10.70 10*3/?L. The reference range was not used to interpret this result as normal/abnormal . RBC (test code = See_Comment [Automated 419-8) message] The sy stem which generated this result transmitted reference range : 4.26 - 5.52 10*6/?L. The reference range was not used to interpret this result as normal/abnormal . HGB (test code = 14.4 g/dL 12.2-16.4 718-7) HCT (test code = 42.9 % 38.4-49.3 4544-3) MCV (test code = 91.7 fL 81.7-95.6 787-2) MCH (test code = 30.8 pg 26.1-32.7 785-6) MCHC (test code = 33.6 g/dL 31.2-35.0 786-4) RDW-SD (test code = 42.6 fL 38.5-51.6 07913-1) RDW-CV (test code = 12.8 % 12.1-15.4 788-0) PLT (test code = See_Comment H [Automated 777-3) message] The sy stem which generated this result transmitted reference range : 150 - 328 10*3/ ?L. The reference r nadine was not used to interpret this result as normal/abnormal . MPV (test code = 9.8 fL 9.8-13.0 07227-5) NRBC/100 WBC (test See_Comment [Automat ed code = [id number]) message] The system which generated this result transmitted reference range : 0.0 - 10.0 /100 WBCs. The refer ence range was not u sed to interpret th is result as normal/abnormal . NRBC x10^3 (test code <0.01 See_Comment [Auto mated = [id number]) message] The s ystem which generated this result transmitted reference range : 10*3/?L. The reference range was not used to interpret this result as normal/abnormal . GRAN MAT (NEUT) % 69.5 % (test code = 770-8) IMM GRAN % (test code 0.30 % = [id number]) LYMPH % (test code = 20.0 % 736-9) MONO % (test code = 7.4 % 5905-5) EOS % (test code = 2.1 % 713-8) BASO % (test code = 0.7 % 706-2) GRAN MAT x10^3(ANC) 6.66 10*3/uL 1.99-6.95 (test code = [id number]) IMM GRAN x10^3 (test 0.03 10*3/uL 0.00-0.06 code = [id number]) LYMPH x10^3 (test code 1.92 10*3/uL 1.09-3.23 = 731-0) MONO x10^3 (test code 0.71 10*3/uL 0.36-1.02 = 742-7) EOS x10^3 (test code = 0.20 10*3/uL 0.06-0.53 711-2) BASO x10^3 (test code 0.07 10*3/uL 0.01-0.09 = 704-7) Lab Interpretation Abnormal (test code = 92927-8) [facility]"
--- NOTE | 2022-02-09 22:41 | ER ---
Nurse's Notes [facility] Name: Cecilio Montilla Age: 36 yrs Sex: Male : 1985 Arrival Date: 02/09/2022 Time: 21:45 Bed Waiting Private MD: Diagnosis: ED Course: 02/09 21:45 Patient arrived in ED. bp1 21:49 Benjamín Jimenes PA is PHCP. jorge 21:49 Andre Webster DO is Attending Physician. cp 22:23 Patient's name was called from ER lobby. No response. Unable to locate patient. Will bm7 disposition as left without being seen by a provider. 22:39 Patient's name was called from ER lobby. No response. Unable to locate patient. Will bm7 disposition as left without being seen by a provider. Administered Medications: No medications were administered Outcome: 22:40 Patient left the ED. bm7 Signatures: Benjamín Jimenes PA PA cp [place], Brittany [facility] Hilda Lay RN RN bm7
== END 2022-02-09 22:40 | disposition left against medical advice (07) ==
LOC: ER 21:42
DX: Z02.9 Encounter for administrative examinations, unspecified (principal)